=== PATIENT | female | born 1975 | race Caucasian/White ===

== ENCOUNTER 2024-06-23 13:34 | Emergency (ER) | payer MEDICAID ==
[~2024-06-23] VITALS: Ht 160 cm; Wt 81.0 kg
[2024-06-23 13:38] VITALS: TEMP 37.1; O2SAT 98
[2024-06-23 15:23] VITALS: BP 164/81; PULSE 65; RESP 16
[2024-06-23] MEDS: HYDROCODONE/ACETAMINOPHEN 10/325MG TABLET PO ONE (15:23)
[2024-06-23] MEDS: IBUPROFEN 600MG TABLET PO ONE (15:23)
[2024-06-23] MEDS ORDERED: IBUP-2029 MT (16:24)
[2024-06-23] MEDS ORDERED: LIDO700A30 TP (16:24)
== END 2024-06-23 16:31 | disposition home or self-care (01) ==
LOC: ER 13:34
DX: S06.0XAA Concussion with loss of consciousness status unknown, initial encounter (principal); M25.532 Pain in left wrist; V43.52XA Car driver injured in collision with other type car in traffic accident, initial encounter; Y93.89 Activity, other specified; Y92.410 Unspecified street and highway as the place of occurrence of the external cause; Y99.8 Other external cause status
CPT/HCPCS: 71045; 72100; 72170; 73130; 73560; 99284